=== PATIENT | male | born 1940 | race Caucasian/White ===

== ENCOUNTER 2018-02-05 10:11 | Inpatient (IN) | payer MEDICARE, BC ==
[~2018-02-05] VITALS: Ht 167.6 cm; Wt 90.4 kg
[2018-02-13] VITALS (8 sets, daily range): BP systolic 154–181; BP diastolic 54–66; PULSE 49–85; TEMP 97.7–98.5
[2018-02-13 09:00] LABS: HEMOGLOBIN 10.1 g/dl (13.5-18.0)
[2018-02-13 09:03] LABS: HEMATOCRIT 33.6 % (42.0-52.0)
[2018-02-13 09:04] LABS: CREATININE, serum 1.47 mg/dL (0.66-1.25); POTASSIUM 4.2 mmol/L (3.4-5.0)
[2018-02-13] MEDS ORDERED: ASPIRIN 81M81 MG/TA2 PO (09:16)
[2018-02-13] MEDS ORDERED: AZOR 10 MG-40 M1 TAB PO (09:16)
[2018-02-13] MEDS ORDERED: PRADAXA75 MG PO (09:18)
[2018-02-13] MEDS ORDERED: COREG 6.256.25 MG/TA PO (09:18)
[2018-02-13] MEDS ORDERED: PRILOSEC 20MG20 MG PO (09:19)
[2018-02-13] MEDS ORDERED: FELDENE10 MG PO (09:19)
[2018-02-13] MEDS ORDERED: ALDACTONE 25MG25 M1 PO (09:20)
[2018-02-13 17:14] LABS: BASO # 0.1 (0.0-0.2); BASO % 0.6 % (0.0-2.0); GRAN # 12.8 (1.4-6.5); GRAN % 87.3 % (42.2-75.2); HEMATOCRIT 32.1 % (42.0-52.0); HEMOGLOBIN 9.4 g/dl (13.5-18.0); LYMPH # 0.9 (1.2-3.4); LYMPH % 6.2 % (20.0-51.0); MEAN CELL VOLUME 74 fl (80.0-100.0); MEAN CORPUSCULAR HEMOGLOBIN 22 pg (27.0-31.0); MEAN CORPUSCULAR HGB CONC 29 g/dl (33.0-37.0); MEAN PLATELET VOLUME 8.8 fl (7.4-10.4); MONO # 0.8 (0.1-0.6); MONO % 5.6 % (1.7-9.3); PLATELET COUNT 320 K/mm3 (130-400); RED BLOOD COUNT 4.35 M/mm3 (4.20-5.60); REDCELL DISTRIBUTION WIDTH-CV 16.7 % (11.5-14.5)
[2018-02-13 17:22] LABS: CALCIUM 8.7 mg/dL (8.4-10.2); CREATININE, serum 1.37 mg/dL (0.66-1.25); POTASSIUM 4.6 mmol/L (3.4-5.0)
[2018-02-14 00:13] VITALS: BP 137/53; PULSE 49; TEMP 98.5
[2018-02-14 03:28] VITALS: BP 144/49; PULSE 49; TEMP 97.9
[2018-02-14 06:25] LABS: BASO # 0.1 (0.0-0.2); BASO % 0.7 % (0.0-2.0); EOS # 0.1 (0.0-0.7); EOS % 1.1 % (0-4.0); GRAN # 7.2 (1.4-6.5); GRAN % 74.7 % (42.2-75.2); LYMPH # 1.5 (1.2-3.4); MEAN CELL VOLUME 74 fl (80.0-100.0); MEAN CORPUSCULAR HGB CONC 29 g/dl (33.0-37.0); MEAN PLATELET VOLUME 9.3 fl (7.4-10.4); MONO # 0.8 (0.1-0.6); PLATELET COUNT 296 K/mm3 (130-400); RED BLOOD COUNT 3.89 M/mm3 (4.20-5.60); REDCELL DISTRIBUTION WIDTH-CV 16.9 % (11.5-14.5)
[2018-02-14 06:35] LABS: HEMATOCRIT 28.6 % (42.0-52.0); HEMOGLOBIN 8.4 g/dl (13.5-18.0); MEAN CORPUSCULAR HEMOGLOBIN 22 pg (27.0-31.0)
[2018-02-14 06:39] LABS: CALCIUM 8.4 mg/dL (8.4-10.2); CREATININE, serum 1.39 mg/dL (0.66-1.25); POTASSIUM 4.4 mmol/L (3.4-5.0)
[2018-02-14 09:09] VITALS: BP 151/50; PULSE 50; TEMP 98
[2018-02-14 15:41] VITALS: BP 149/54; PULSE 51; TEMP 98.2
[2018-02-14 20:14] VITALS: BP 155/47; PULSE 48; TEMP 98
[2018-02-15] VITALS (7 sets, daily range): BP systolic 147–172; BP diastolic 49–63; PULSE 55–62; TEMP 97.5–98.2
== END 2018-02-15 18:20 | disposition home or self-care (01) | DRG 658 ==
LOC: INPTSU 02-13 07:48 → SURG 02-13 07:48
PROVIDERS: Nurse Anesthetist, Certified Registered; Urology
PROC: 0TT00ZZ Resection of Right Kidney, Open Approach (ICD-10-PCS; principal; 2018-02-13 10:00)
DX: C64.1 Malignant neoplasm of right kidney, except renal pelvis (principal); Z23 Encounter for immunization; I10 Essential (primary) hypertension; E78.5 Hyperlipidemia, unspecified; I48.0 Paroxysmal atrial fibrillation
CPT/HCPCS: A4314; A4315; A9284; J1170; J1650; J2250; J2405; J2704; J2795; J3010; J7120